=== PATIENT | male | born 1980 | race Caucasian/White ===

== ENCOUNTER 2019-01-15 09:28 | Inpatient (IN) | payer BC ==
[2019-01-15] MEDS ORDERED: ONDANSETRON 4 MG/2 ML VIAL ONE (10:14)
[2019-01-15] MEDS ORDERED: NA CHLORIDE 0.9% 1,000 ML ONE ×2 (10:14→13:14)
[2019-01-15] MEDS ORDERED: MORPHINE 4 MG/ML SYR ONE ×2 (10:14→14:24)
[2019-01-15 10:44] LABS: Absolute Lymphocytes (CBC) 2.3 K/uL (0.7-4.9); Absolute Monocytes 1.4 K/uL (0.1-1.3); Absolute Neutrophil 14.5 K/uL (1.8-8.0); Basophils % 0.3 % (0-1.3); Eosinophils % 0.6 % (0-4.4); Lymphocytes % 12.6 % (15.3-44.8); MPV 8.1 fL (7.6-11.3); Monocytes % 7.8 % (3.3-12.3); RBC Red Blood Cell Count 4.45 M/uL (4.33-5.43)
[2019-01-15 11:01] LABS: ALT/SGPT 36 U/L (12-78); AST/SGOT 14 U/L (15-37); Albumin 3.4 g/dL (3.4-5.0); Alkaline Phosphatase 78 U/L (45-117); BUN Blood Urea Nitrogen 7 mg/dL (7-18); Bicarbonate 28 mmol/L (21-32); Bilirubin Direct 0.2 mg/dL (0-0.2); Bilirubin Total 1.1 mg/dL (0.2-1.0); Glucose Level 137 mg/dL (74-106); Lipase 64 U/L (73-393); Potassium 3.6 mmol/L (3.5-5.1); Protein, Total 7.9 g/dL (6.4-8.2); Sodium Level 138 mmol/L (136-145)
[2019-01-15 11:10] LABS: Urine Blood 1+ (NEG); Urine Glucose NEGATIVE (NEG); Urine Protein 2+ (NEG)
--- NOTE | 2019-01-15 11:15 | RAD REPORT ---
EXAM DESCRIPTION: CT - Stone Protocol - 01/15/2019 10:47 am CLINICAL HISTORY: Flank pain. ABD PAIN COMPARISON: No comparisons TECHNIQUE: Axial images were obtained without oral or IV contrast. Lack of contrast limits solid org an and vascular assessment. The [id number] spans the entirety of the system partially obscuring uppermost abdomen and lung bases. Coronal reformatted images were obtained and reviewed. All CT scans are performed using dose optimization technique as appropriate and may include automated exposure control or mA/KV adjustment according to patient size. FINDINGS: The lower lung harris are clear. Imaged portions of the liver and spleen show no suspicious findings on non-contrast imaging. The panc reas and adrenal glands are normal. No pathologic lymphadenopathy in the abdomen or pelvis. Small nonobstructing calculi are present in both kidneys. No bowel obstruction, free air, free fluid or abscess. Normal appendix noted.Inflammatory changes are present surrounding a segment of the sigmoid colon in the anterior inferior pelvis. The inflamed therese gth of the sigmoid colon measures 4.5 cm. No abscess is seen. No significant bony abnormality. IMPRESSION: 4.5 cm segment of inflamed sigmoid colon in the lower abdomen anteriorly suspicious for acute sigmoid diverticulitis. No abscess seen. Bilateral nephrolithiasis without hydronephrosis.
[2019-01-15] MEDS ORDERED: METRONIDAZOLE 500mg IVPB 500 MG/100 ML BAG IV ONE (11:39)
[2019-01-15] MEDS ORDERED: Levofloxacin 750mg IV 750 MG/150 ML BAG IV ONE (11:39)
--- NOTE | 2019-01-15 11:46 | ER ---
Nurse's Notes [facility] Name: Lonny Lane Age: 38 yrs Sex: Male : 1980 Arrival Date: 01/15/2019 Time: 09:31 Bed 19 Private MD: Diagnosis: Diverticular disease of intestine;Diverticulitis of large intestine without perforation or abscess without bleeding;Abdominal tenderness;Elevated white blood cell count Presentation: 01/15 09:35 Presenting complaint: Patient states: "I think I have a kidney stone." Pt c/o ss intermittent suprapubic pain that is descried as stabbing/ burning. Transition of care: patient was not received from another setting of care. Onset of symptoms was January 14, 2019. Risk Assessment: Do you want to hurt yourself or someone else? Patient reports no desire to harm self or others. Initial Sepsis Screen: Does the patient meet any 2 criteria? No. Patient's initial sepsis screen is negative. Does the patient have a suspected source of infection? No. Patient's initial sepsis screen is negative. Care prior to arrival: None. 09:35 Method Of Arrival: Ambulatory ss 09:35 Acuity: KARMEN 3 ss Historical: - Allergies: 09:54 Demerol; ss - Home Meds: 09:54 None [Active]; ss - PMHx: 09:54 None; ss - PSHx: 09:54 nerve surgery to L arm; ss - Immunization history:: Adult Immunizations up to date. - Social history:: Smoking status: Patient/guardian denies using tobacco. - Family history:: not pertinent. - Ebola Screening: : Patient denies exposure to infectious person Patient denies travel to an Ebola-affected area in the 21 days before illness onset. Screenin:50 Abuse screen: Denies threats or abuse. Denies injuries from another. Nutritional sv screening: No deficits noted. Tuberculosis screening: No symptoms or risk factors identified. Fall Risk None identified. Assessment: 09:50 General: Appears in no apparent distress. uncomfortable, well groomed, well developed, sv Behavior is calm, cooperative, appropriate for age. Pain: Complains of pain in epigastric area, suprapubic area, right upper quadrant and right lower quadrant Pain currently is 5 out of 10 on a pain scale. Pain began today Is continuous. Neuro: Level of Consciousness is awake, alert, obeys commands, Oriented to person, place, time, situation, Moves all extremities. Full function Gait is steady, Speech is normal. Respiratory: Respiratory effort is even, unlabored, Respiratory pattern is regular, symmetrical. GI: Abdomen is round non-distended, Abd is soft X 4 quads Abdomen is tender to palpation in epigastric area, suprapubic area, right upper quadrant and right lower quadrant. : Denies burning with urination, urinary frequency, urgency. Derm: Skin is clammy, Skin is normal. Musculoskeletal: Range of motion: intact in all extremities. 10:32 Reassessment: Patient appears in no apparent distress at this time. Patient and/or sv family updated on plan of care and expected duration. Pain level reassessed. Patient is alert, oriented x 3, equal unlabored respirations, skin warm/dry/pink. Derm: Skin is diaphoretic. 11:52 Reassessment: Patient appears in no apparent distress at this time. Patient and/or sv family updated on plan of care and expected duration. Pain level reassessed. Patient is alert, oriented x 3, equal unlabored respirations, skin warm/dry/pink. Patient states feeling better. 13:25 Reassessment: Patient appears in no apparent distress at this time. Patient and/or sv family updated on plan of care and expected duration. Pain level reassessed. Patient is alert, oriented x 3, equal unlabored respirations, skin warm/dry/pink. 13:45 Reassessment: Patient appears in no apparent distress at this time. Patient and/or sv family updated on plan of care and expected duration. Pain level reassessed. Patient is alert, oriented x 3, equal unlabored respirations, skin warm/dry/pink. Patient states feeling better. Patient states symptoms have improved. 14:24 Reassessment: Patient appears in no apparent distress at this time. Patient and/or sv family updated on plan of care and expected duration. Pain level reassessed. Patient is alert, oriented x 3, equal unlabored respirations, skin warm/dry/pink. Vital Signs: 09:54 Resp 18; Weight 127.01 kg; Height 5 ft. 9 in. (175.26 cm); Pain 5/10; ss 11:00 Pain 4/10; sv 11:00 Pain 4/10; sv 11:23 BP 134 / 89; Pulse 96; Resp 18; Temp 98.2(TE); Pulse Ox 98% ; mh5 12:15 BP 130 / 88; Pulse 88; Resp 16; Pulse Ox 99% ; sv 14:22 BP 146 / 86; Pulse 84; Resp 18; Pulse Ox 99% ; sv 09:54 Body Mass Index 41.35 (127.01 kg, 175.26 cm) ED Course: 09:31 Patient arrived in ED. mr 09:32 Alex Antonio MD is Attending Physician. alicia 09:47 Giovana Aguilera RN is Primary Nurse. sv 09:50 Patient has correct armband on for positive identification. Placed in gown. Bed in low sv position. Call light in reach. Side rails up X 1. Adult w/ patient. Pulse ox on. NIBP on. Door closed. Head of bed elevated. 09:54 Triage completed. ss 09:54 Arm band placed on right wrist. ss 10:00 Missed attempt(s): 22 gauge in right hand. Bleeding controlled, band aid applied, sv catheter tip intact. 10:10 Missed attempt(s): 22 gauge in right wrist. done by Hilda ZULETA. Bleeding controlled, sv band aid applied, catheter tip intact. 10:[address] kw1 10:25 Accessed ,peripheral vein via ultrasound, utilizing static ultrasound technique using sv 20G Nexia IV catheter per hospital protocol. Clean \\T\\ dry. Dressing intact. Good blood return. Flushes easily. 10:47 CT completed. Patient tolerated procedure well. Patient moved back from CT. kw1 10:47 CT Stone Protocol In Process Unspecified. EDMS 11:41 Sandhya Singer MD is Hospitalizing Provider. aliica 14:23 No provider procedures requiring assistance completed. Patient admitted, IV remains in sv place. intact. Administered Medications: 10:32 Drug: Zofran 4 mg Route: IVP; Site: right antecubital; sv 11:00 Follow up: Pain 4/10 Adult; Response: No adverse reaction; Pain is decreased sv 10:34 Drug: morphine 4 mg Route: IVP; Site: right antecubital; sv 11:00 Follow up: Pain 4/10 Adult; Response: No adverse reaction; Pain is decreased sv 11:00 Drug: NS 0.9% 1000 ml Route: IV; Rate: 1 bolus; Site: right antecubital; sv 12:00 Follow up: Response: No adverse reaction; IV Status: Completed infusion; IV Intake: sv 1000ml 11:52 Drug: Rocephin - (cefTRIAXone) 1 grams Route: IVPB; Infused Over: 30 mins; Site: right sv antecubital; 11:55 Follow up: Response: No adverse reaction; IV Status: Completed infusion; IV Intake: sv 10ml ; given IVP 11:55 Drug: Flagyl 500 mg Volume: 100 ml; Route: IVPB; Rate: 200 ml/hr; Infused Over: 30 sv mins; Site: right antecubital; 13:25 Follow up: Response: No adverse reaction; IV Status: Completed infusion; IV Intake: sv 100ml 13:25 Drug: LevaQUIN 750 mg Volume: 150 ml; Route: IVPB; Infused Over: 90 mins; Site: right sv antecubital; 14:24 Follow up: Response: No adverse reaction; IV Status: Infusion continued upon admission sv 14:16 Drug: morphine 4 mg Route: IVP; Site: right antecubital; sv 14:24 Follow up: Response: No adverse reaction sv Intake: 11:55 IV: 10ml; Total: 10ml. sv 12:00 IV: 1000ml; Total: 1010ml. sv 13:25 IV: 100ml; Total: 1110ml. sv Outcome: 11:44 Decision to Hospitalize by Provider. [facility] 13:45 Admitted to Med/surg accompanied by tech, family with patient, via wheelchair, room sv 202, with chart, Report called to Gamal ZULETA 13:45 Condition: stable 13:45 Instructed on the need for admit. 14:24 Patient left the ED. sv Signatures: Dispatcher [employer] Giovana Jones, RN Alex Brennan MD MD cha Rivera, Hilda Gonzales RN RN ss Martinez, Maria [facility] Marika [facility]
--- NOTE | 2019-01-15 11:46 | EDPHYS ---
Physician Documentation [facility] Name: Lonny Lane Age: 38 yrs Sex: Male : 1980 Arrival Date: 01/15/2019 Time: 09:31 Bed 19 Private MD: ED Physician Alex Antonio HPI: 01/15 09:47 This 38 yrs old Male presents to ER via Unassigned with complaints of alicia Possible Kidney Stone. 09:47 The patient presents with abdominal pain in the upper abdomen, in the lower abdomen, alicia abdominal distention. Onset: The symptoms/episode began/occurred 1 day(s) ago. The symptoms do not radiate. Associated signs and symptoms: Pertinent positives: fever, nausea. The symptoms are described as constant, crampy. Modifying factors: The symptoms are alleviated by nothing, the symptoms are aggravated by home stress, movement, pressure. Severity of pain: At its worst the pain was moderate in the emergency department the pain is unchanged. The patient has not experienced similar symptoms in the past. Historical: - Allergies: 09:54 Demerol; ss - Home Meds: 09:54 None [Active]; ss - PMHx: 09:54 None; ss - PSHx: 09:54 nerve surgery to L arm; ss - Immunization history:: Adult Immunizations up to date. - Social history:: Smoking status: Patient/guardian denies using tobacco. - Family history:: not pertinent. - Ebola Screening: : Patient denies exposure to infectious person Patient denies travel to an Ebola-affected area in the 21 days before illness onset. ROS: 09:47 Constitutional: Negative for fever, chills, and weight loss, Eyes: Negative for injury, alicia pain, redness, and discharge, ENT: Negative for injury, pain, and discharge, Neck: Negative for injury, pain, and swelling, Cardiovascular: Negative for chest pain, palpitations, and edema, Respiratory: Negative for shortness of breath, cough, wheezing, and pleuritic chest pain, Back: Negative for injury and pain, : Negative for injury, bleeding, discharge, and swelling, MS/Extremity: Negative for injury and deformity, Skin: Negative for injury, rash, and discoloration, Neuro: Negative for headache, weakness, numbness, tingling, and seizure, Psych: Negative for depression, anxiety, suicide ideation, homicidal ideation, and hallucinations, Allergy/Immunology: Negative for hives, rash, and allergies, Endocrine: Negative for neck swelling, polydipsia, polyuria, polyphagia, and marked weight changes, Hematologic/Lymphatic: Negative for swollen nodes, abnormal bleeding, and unusual bruising. 09:47 Abdomen/GI: Positive for abdominal pain, of the right lower quadrant and left lower quadrant. Exam: 09:47 Constitutional: This is a well developed, well nourished patient who is awake, alert, alicia and in no acute distress. Head/Face: Normocephalic, atraumatic. Eyes: Pupils equal round and reactive to light, extra-ocular motions intact. Lids and lashes normal. Conjunctiva and sclera are non-icteric and not injected. Cornea within normal limits. Periorbital areas with no swelling, redness, or edema. ENT: Nares patent. No nasal discharge, no septal abnormalities noted. Tympanic membranes are normal and external auditory canals are clear. Oropharynx with no redness, swelling, or masses, exudates, or evidence of obstruction, uvula midline. Mucous membranes moist. Neck: Trachea midline, no thyromegaly or masses palpated, and no cervical lymphadenopathy. Supple, full range of motion without nuchal rigidity, or vertebral point tenderness. No Meningismus. Chest/axilla: Normal chest wall appearance and motion. Nontender with no deformity. No lesions are appreciated. Cardiovascular: Regular rate and rhythm with a normal S1 and S2. No gallops, murmurs, or rubs. Normal PMI, no JVD. No pulse deficits. Respiratory: Lungs have equal breath sounds bilaterally, clear to auscultation and percussion. No rales, rhonchi or wheezes noted. No increased work of breathing, no retractions or nasal flaring. Back: No spinal tenderness. No costovertebral tenderness. Full range of motion. Male : Normal genitalia with no discharge or lesions. Skin: Warm, dry with normal turgor. Normal color with no rashes, no lesions, and no evidence of cellulitis. MS/ Extremity: Pulses equal, no cyanosis. Neurovascular intact. Full, normal range of motion. Neuro: Awake and alert, GCS 15, oriented to person, place, time, and situation. Cranial nerves II-XII grossly intact. Motor strength 5/5 in all extremities. Sensory grossly intact. Cerebellar exam normal. Normal gait. Psych: Awake, alert, with orientation to person, place and time. Behavior, mood, and affect are within normal limits. 09:47 Abdomen/GI: Inspection: distension, Bowel sounds: normal, Liver: no appreciated palpable abnormalities, Hernia: not appreciated. Vital Signs: 09:54 Resp 18; Weight 127.01 kg; Height 5 ft. 9 in. (175.26 cm); Pain 5/10; ss 11:00 Pain 4/10; sv 11:00 Pain 4/10; sv 11:23 BP 134 / 89; Pulse 96; Resp 18; Temp 98.2(TE); Pulse Ox 98% ; mh5 12:15 BP 130 / 88; Pulse 88; Resp 16; Pulse Ox 99% ; sv 14:22 BP 146 / 86; Pulse 84; Resp 18; Pulse Ox 99% ; sv 09:54 Body Mass Index 41.35 (127.01 kg, 175.26 cm) MDM: 09:32 Patient medically screened. [facility] 09:49 Data reviewed: vital signs, nurses notes, lab test result(s), radiologic studies, CT alicia scan. 01/15 09:47 Order name: Basic Metabolic Panel; Complete Time: 11:06 [facility] 01/15 09:47 Order name: CBC with Diff; Complete Time: 10:56 [facility] 01/15 09:47 Order name: Creatinine for Radiology; Complete Time: 11:06 [facility] 01/15 09:47 Order name: Hepatic Function; Complete Time: 11:06 [facility] 01/15 09:47 Order name: Lipase; Complete Time: 11:06 [facility] 01/15 09:47 Order name: Urine Culture [facility] 01/15 09:47 Order name: CT Stone Protocol; Complete Time: 11:34 [facility] 01/15 09:53 Order name: Urine Dipstick--Ancillary (enter results); Complete Time: 11:34 ms 01/15 12:39 Order name: Blood Culture EDMS 01/15 09:47 Order name: IV Saline Lock; Complete Time: 10:38 [facility] 01/15 09:47 Order name: Labs collected and sent; Complete Time: 10:38 [facility] 01/15 09:47 Order name: Urine Dipstick-Ancillary (obtain specimen); Complete Time: 10:38 [facility] 01/15 12:39 Order name: NPO; Complete Time: 14:20 EDMS Administered Medications: 10:32 Drug: Zofran 4 mg Route: IVP; Site: right antecubital; sv 11:00 Follow up: Pain 4/10 Adult; Response: No adverse reaction; Pain is decreased sv 10:34 Drug: morphine 4 mg Route: IVP; Site: right antecubital; sv 11:00 Follow up: Pain 4/10 Adult; Response: No adverse reaction; Pain is decreased sv 11:00 Drug: NS 0.9% 1000 ml Route: IV; Rate: 1 bolus; Site: right antecubital; sv 12:00 Follow up: Response: No adverse reaction; IV Status: Completed infusion; IV Intake: sv 1000ml 11:52 Drug: Rocephin - (cefTRIAXone) 1 grams Route: IVPB; Infused Over: 30 mins; Site: right sv antecubital; 11:55 Follow up: Response: No adverse reaction; IV Status: Completed infusion; IV Intake: sv 10ml ; given IVP 11:55 Drug: Flagyl 500 mg Volume: 100 ml; Route: IVPB; Rate: 200 ml/hr; Infused Over: 30 sv mins; Site: right antecubital; 13:25 Follow up: Response: No adverse reaction; IV Status: Completed infusion; IV Intake: sv 100ml 13:25 Drug: LevaQUIN 750 mg Volume: 150 ml; Route: IVPB; Infused Over: 90 mins; Site: right sv antecubital; 14:24 Follow up: Response: No adverse reaction; IV Status: Infusion continued upon admission sv 14:16 Drug: morphine 4 mg Route: IVP; Site: right antecubital; sv 14:24 Follow up: Response: No adverse reaction sv Disposition: 01/15/19 11:44 Hospitalization ordered by Sandyha Singer for Inpatient Admission. Preliminary diagnosis are Diverticular disease of intestine, Diverticulitis of large intestine without perforation or abscess without bleeding, Abdominal tenderness, Elevated white blood cell count. - Bed requested for Telemetry/MedSurg (Inpatient). - Status is Inpatient Admission. sv - Condition is Stable. - Problem is new. - Symptoms have improved. UTI on Admission? No Signatures: Dispatcher [employer] EDMS Willy, Giovana, RN RN sv Paco, Alex, MD MD alicia Sherman, Dawn ms Smirch, Hilda, RN RN ss Corrections: (The following items were deleted from the chart) 13:00 11:44 Hospitalization Ordered by Sandhya Singer MD for Inpatient Admission. Preliminary ms diagnosis is Diverticular disease of intestine; Diverticulitis of large intestine without perforation or abscess without bleeding; Abdominal tenderness; Elevated white blood cell count. Bed requested for Telemetry/MedSurg (Inpatient). Status is Inpatient Admission. Condition is Stable. Problem is new. Symptoms have improved. UTI on Admission? No. alicia 14:24 13:00 01/15/2019 11:44 Hospitalization Ordered by Sandhya Singer MD for Inpatient sv Admission. Preliminary diagnosis is Diverticular disease of intestine; Diverticulitis of large intestine without perforation or abscess without bleeding; Abdominal tenderness; Elevated white blood cell count. Bed requested for Telemetry/MedSurg (Inpatient). Status is Inpatient Admission. Condition is Stable. Problem is new. Symptoms have improved. UTI on Admission? No. ms
[2019-01-15] MEDS ORDERED: CEFTRIAXONE/SWI 1gm 1 GM/10 ML SYR ONE (11:51)
[2019-01-15] MEDS: NA CHLORIDE 0.9% 1,000 ML IV SCH ×2 (13:00→23:00)
--- NOTE | 2019-01-15 13:12 | P.HP ---
Certification for Inpatient Patient admitted to: Inpatient With expected LOS: >2 Midnights Patient will require the following post-hospital care: None Practitioner: I am a practitioner with admitting privileges, knowledge of patient current condition, hospital course, and medical plan of care. Services: Services provided to patient in accordance with Admission requirements found in Title 42 Section 412.3 of the Code of Federal Regulations Patient History Date of Service: 01/15/19 Primary Care Provider: [facility] History of Present Illness: This is a 38-year-old male with significant past medical history of constipation who presented to the ED complaining of having abdominal tenderness nausea vomiting that started about 2 days ago. Patient stated that she got progressively worse and thus decided to come to the ER for further workup. Patient also had a fever of 100.3 last night along with chills. No diarrhea noted. Has not had similar symptoms in the past and does not take any medication at home that could be causing it as well. Patient denies having any smoking or alcohol use in the past or currently. No other complaints to offer. Denies having any chest pain shortness of breath or any other associated symptoms. Review of Systems 10-point ROS is otherwise unremarkable Physical Examination - Physical Exam General: Alert, In no apparent distress, Obese HEENT: Atraumatic, PERRLA, Mucous membr. moist/pink, EOMI, Sclerae nonicteric Neck: Supple, 2+ carotid pulse no bruit, No LAD, Without JVD or thyroid abnormality Respiratory: Clear to auscultation bilaterally, Normal air movement Cardiovascular: Regular rate/rhythm, Normal S1 S2 Gastrointestinal: Normal bowel sounds, No tenderness Musculoskeletal: Tenderness (For right lower quadrant and left lower quadrant) Integumentary: No rashes Neurological: Normal speech, Normal strength at 5/5 x4 extr, Normal tone Lymphatics: No axilla or inguinal lymphadenopathy - Studies Laboratory Data (last 24 hrs) 01/15/19 10:25: Creatinine 0.77 01/15/19 10:25: WBC 18.4 H, Hgb 13.3 L, Hct 39.0 L, Plt Count 284 01/15/19 10:25: Sodium 138, Potassium 3.6, BUN 7, Creatinine 0.76, Glucose 137 H , Total Bilirubin 1.1 H, AST 14 L, ALT 36, Alkaline Phosphatase 78, Lipase 64 L Assessment and Plan - Problems (Diagnosis) (1) Diverticulitis of sigmoid colon Current Visit: Yes Status: Acute Plan: Acute diverticulitis of the sigmoid colon -NPO, IV fluids, IV Cipro and Flagyl -will monitor patient closely here in the hospital -will repeat lab work tomorrow a.m. -patient will need colonoscopy 6 weeks post discharge - Plan Admit patient to medical-surgical unit for IV fluids and IV antibiotics for his sigmoid diverticulitis. Patient will need choir more than 2 days of hospital stay for his acute infection. Discharge Plan: Home Plan to discharge in: Greater than 2 days - Advance Directives Does patient have a Living Will: No Does patient have a Durable POA for Healthcare: No - Code Status/Comfort Care Code Status Assessed: Yes Critical Care: Yes
[2019-01-15] MEDS ORDERED: ONDANSETRON 4 MG/2 ML VIAL IV PRN (14:55)
[2019-01-15] MEDS: CIPROFLOXACIN 400mg IV 400 MG/200 ML BAG IV SCH ×2 (15:21→20:58)
[2019-01-15 15:49] VITALS: BMI 43.4
[2019-01-15] MEDS: METRONIDAZOLE 500mg IVPB 500 MG/100 ML BAG IV SCH ×2 (17:05→23:27)
[2019-01-15] MEDS ORDERED: KCL 20 MEQ/100 mL IVPB 20 MEQ/100 ML BAG IV SCH (18:00)
[2019-01-15 18:43] LABS: Urine Appearance CLEAR; Urine Bilirubin NEGATIVE (NEG); Urine Blood NEGATIVE (NEG); Urine Color YELLOW; Urine Glucose NEGATIVE (NEG); Urine Protein TRACE (NEG); Urine Urobilinogen 0.2 mg/dL (0.2-1.0)
[2019-01-15 19:02] LABS: Urine Microscopic Reflex ORDER UMIC
[2019-01-15 19:17] LABS: Urine Bacteria <20 /HPF (NONE SEEN); Urine Culture Reflex Order NOT NEEDED; Urine RBC <5 /HPF (NONE SEEN)
[2019-01-15] MEDS: MORPHINE 2 MG/ML SYR IV PRN (20:13)
[2019-01-15 22:16] VITALS: O2SAT 98
[2019-01-16] MEDS: METRONIDAZOLE 500mg IVPB 500 MG/100 ML BAG IV SCH ×4 (05:06→23:23)
[2019-01-16] MEDS: NA CHLORIDE 0.9% 1,000 ML IV SCH ×3 (05:07→17:42)
[2019-01-16 06:49] LABS: Absolute Lymphocytes (CBC) 2.1 K/uL (0.7-4.9); Absolute Monocytes 1.2 K/uL (0.1-1.3); Absolute Neutrophil 11.8 K/uL (1.8-8.0); Basophils % 0.4 % (0-1.3); Eosinophils % 0.6 % (0-4.4); Hematocrit 35.4 % (39.6-49.0); Lymphocytes % 13.9 % (15.3-44.8); MPV 8.3 fL (7.6-11.3); Monocytes % 7.5 % (3.3-12.3); RBC Red Blood Cell Count 4.03 M/uL (4.33-5.43)
[2019-01-16 07:01] LABS: ALT/SGPT 24 U/L (12-78); AST/SGOT 11 U/L (15-37); Albumin 2.8 g/dL (3.4-5.0); Alkaline Phosphatase 66 U/L (45-117); BUN Blood Urea Nitrogen 5 mg/dL (7-18); Bicarbonate 23 mmol/L (21-32); Bilirubin Total 0.8 mg/dL (0.2-1.0); Glucose Level 127 mg/dL (74-106); Magnesium 1.8 mg/dL (1.8-2.4); Phosphorus 1.6 mg/dL (2.5-4.9); Potassium 3.3 mmol/L (3.5-5.1); Protein, Total 7.1 g/dL (6.4-8.2); Sodium Level 140 mmol/L (136-145)
[2019-01-16] MEDS: MORPHINE 2 MG/ML SYR IV PRN ×2 (07:35→19:25)
[2019-01-16] MEDS: CIPROFLOXACIN 400mg IV 400 MG/200 ML BAG IV SCH ×2 (08:26→19:46)
[2019-01-16] MEDS ORDERED: MAGNESIUM SULFATE 1 gm IVPB 1 GM/100 ML BAG IV ONE (09:40)
[2019-01-16] MEDS ORDERED: POTASSIUM PHOS IN 0.9 % NACL 15 MMOL/250 ML BAG IV ONE (09:40)
[2019-01-16] MEDS ORDERED: KCL 20 MEQ/100 mL IVPB 20 MEQ/100 ML BAG IV SCH (10:00)
--- NOTE | 2019-01-16 13:56 | P.PN ---
Subjective Date of Service: 01/16/19 Primary Care Provider: [facility] Subjective: No C/O voiced, Ambulating, Improving, NPO, Working w/ PT, Doing well Review of Systems 10-point ROS is otherwise unremarkable Physical Examination - Vital Signs Temperature: 98.2 F Blood Pressure: 130/74 Pulse: 93 Respirations: 18 Pulse Ox (%): 95 - Physical Exam General: Alert, In no apparent distress HEENT: Atraumatic, PERRLA, EOMI Neck: Supple, JVD not distended Respiratory: Clear to auscultation bilaterally, Normal air movement Cardiovascular: Regular rate/rhythm, Normal S1 S2 Gastrointestinal: Normal bowel sounds, No tenderness Musculoskeletal: No tenderness Integumentary: No rashes Neurological: Normal speech, Normal tone, Normal affect Lymphatics: No axilla or inguinal lymphadenopathy - Studies Medications List Reviewed: Yes Assessment And Plan - Current Problems (Diagnosis) (1) Diverticulitis of sigmoid colon Current Visit: Yes Status: Acute Plan: Acute diverticulitis of the sigmoid colon -NPO, IV fluids, IV Cipro and Flagyl -1 episode of diarrhea this AM. No N/V -Will continue with current care. -patient will need colonoscopy 6 weeks post discharge - Plan Pending clinical improvement. Continue with IV abx at this time. Discharge Plan: Home Plan to discharge in: 48 Hours - Code Status/Comfort Care Code Status Assessed: Yes Critical Care: No
[2019-01-17] MEDS: NA CHLORIDE 0.9% 1,000 ML IV SCH ×2 (02:51→10:00)
[2019-01-17] MEDS: METRONIDAZOLE 500mg IVPB 500 MG/100 ML BAG IV SCH ×2 (04:54→12:19)
[2019-01-17 06:19] LABS: ALT/SGPT 19 U/L (12-78); AST/SGOT 12 U/L (15-37); Albumin 2.8 g/dL (3.4-5.0); Alkaline Phosphatase 67 U/L (45-117); BUN Blood Urea Nitrogen 8 mg/dL (7-18); Bicarbonate 22 mmol/L (21-32); Bilirubin Total 0.5 mg/dL (0.2-1.0); Glucose Level 109 mg/dL (74-106); Magnesium 2.3 mg/dL (1.8-2.4); Phosphorus 1.6 mg/dL (2.5-4.9); Potassium 3.6 mmol/L (3.5-5.1); Protein, Total 7.3 g/dL (6.4-8.2); Sodium Level 140 mmol/L (136-145)
[2019-01-17 06:50] LABS: Absolute Lymphocytes (CBC) 2.2 K/uL (0.7-4.9); Absolute Monocytes 1.2 K/uL (0.1-1.3); Absolute Neutrophil 11.1 K/uL (1.8-8.0); Basophils % 0.6 % (0-1.3); Eosinophils % 1.4 % (0-4.4); Hematocrit 36.6 % (39.6-49.0); Lymphocytes % 15.2 % (15.3-44.8); MPV 8.7 fL (7.6-11.3); Monocytes % 7.9 % (3.3-12.3); RBC Red Blood Cell Count 4.18 M/uL (4.33-5.43)
[2019-01-17] MEDS ORDERED: POTASSIUM PHOS IN 0.9 % NACL 15 MMOL/250 ML BAG IV ONE (09:00)
[2019-01-17] MEDS: CIPROFLOXACIN 400mg IV 400 MG/200 ML BAG IV SCH (09:04)
[2019-01-17 13:50] VITALS: BP 146/74; TEMP 97.8
--- NOTE | 2019-01-17 18:05 | P.DS ---
Admission Date: 01/15/19 Discharge Date: 01/17/19 Primary Care Provider: TIFFANY [email or web address] Disposition: ROUTINE DISCHARGE Discharge Condition: GOOD - Problems (1) Diverticulitis of sigmoid colon Status: Acute Brief History of Present Illness: This is a 38-year-old male with significant past medical history of constipation who presented to the ED complaining of having abdominal tenderness nausea vomiting that started about 2 days ago. Patient stated that she got progressively worse and thus decided to come to the ER for further workup. Patient also had a fever of 100.3 last night along with chills. No diarrhea noted. Has not had similar symptoms in the past and does not take any medication at home that could be causing it as well. Patient denies having any smoking or alcohol use in the past or currently. No other complaints to offer. Denies having any chest pain shortness of breath or any other associated symptoms. Hospital Course: Overall during the hospital stay patient remained stable Patient was initially admitted to the hospital for sigmoid colon diverticulitis. Patient was started on IV antibiotics Cipro and Flagyl, IV fluids and was kept NPO while here in the hospital. Patient had marked improvement in his symptoms. Patient's diet was advanced once a diarrhea nausea vomiting resolved here in the hospital. Patient was able to tolerate the diet and the antibiotics was switched over to oral. Patient then was discharged home under stable condition was asked to follow with primary care provider and GI doctor in about 1-2 days post discharge. Patient will need a colonoscopy in about 6 weeks post discharge to assess for diverticulosis or any other colon pathology. Patient demonstrate understanding and was prescribed ciprofloxacin and Flagyl Vital Signs/Physical Exam: Temp Pulse Resp BP Pulse Ox 97.8 F 91 H 16 146/74 H 99 01/17/19 12:00 01/17/19 12:00 01/17/19 12:00 01/17/19 12:00 01/17/19 12:00 General: Alert, In no apparent distress HEENT: Atraumatic, PERRLA, EOMI Neck: Supple, JVD not distended Respiratory: Clear to auscultation bilaterally, Normal air movement Cardiovascular: Regular rate/rhythm, Normal S1 S2 Gastrointestinal: Normal bowel sounds, No tenderness Musculoskeletal: No tenderness Integumentary: No rashes Neurological: Normal speech, Normal tone, Normal affect Lymphatics: No axilla or inguinal lymphadenopathy Laboratory Data at Discharge: WBC 14.8 K/uL (4.3-10.9) H 01/17/19 05:40 Hgb 12.3 g/dL (13.6-17.9) L 01/17/19 05:40 Hct 36.6 % (39.6-49.0) L 01/17/19 05:40 Plt Count 273 K/uL (152-406) 01/17/19 05:40 Sodium 140 mmol/L (136-145) 01/17/19 05:40 Potassium 3.6 mmol/L (3.5-5.1) 01/17/19 05:40 BUN 8 mg/dL (7-18) 01/17/19 05:40 Creatinine 0.60 mg/dL (0.55-1.3) 01/17/19 05:40 Glucose 109 mg/dL (74-106) H 01/17/19 05:40 Phosphorus 1.6 mg/dL (2.5-4.9) L 01/17/19 05:40 Magnesium 2.3 mg/dL (1.8-2.4) D 01/17/19 05:40 Total Bilirubin 0.5 mg/dL (0.2-1.0) 01/17/19 05:40 AST 12 U/L (15-37) L 01/17/19 05:40 ALT 19 U/L (12-78) 01/17/19 05:40 Alkaline Phosphatase 67 U/L (45-117) 01/17/19 05:40 Lipase 64 U/L (73-393) L 01/15/19 10:25 Home Medications: Ciprofloxacin HCl 500 mg PO BID #20 tablet 01/17/19 metroNIDAZOLE [Flagyl] 500 mg PO Q8H #30 tablet 01/17/19 New Medications: Ciprofloxacin HCl 500 mg PO BID #20 tablet metroNIDAZOLE [Flagyl] 500 mg PO Q8H #30 tablet Patient Discharge Instructions: Please f.u with PCP and GI in 1 to 2 weeks post discharge. New medication. Ciprofloxacin 500mg BID and Flagyl 500mg q8h Diet: Regular Activity: Ad candice Followup: Liliana Pacheco MD [ACTIVE - CAN ADMIT] - 2-3 Days
== END 2019-01-17 13:33 | disposition home or self-care (01) | DRG 392 ==
LOC: ER 09:28 → ERHOLD 12:37 → 2ND 13:47
PROVIDERS: ADMIT Family Medicine; ATTEND Family Medicine
DX: K57.32 Diverticulitis of large intestine without perforation or abscess without bleeding (principal)
CPT/HCPCS: 36415; 74176; 76377; 80048; 80053; 80076; 81003; 81015; 83690; 83735; 84100; 85025; 87040; 87086; 87088; 96361; 96365; 96367; 96375; 99285; J0696; J0744; J2270; J2405; J3475; J7030